=== PATIENT | female | born 1940 | race Caucasian/White ===

== ENCOUNTER 2018-04-03 05:17 | Inpatient (IN) | payer MEDICARE, BC ==
[~2018-04-03] VITALS: Ht 162.6 cm; Wt 56.7 kg
[~2018-04-03 05:17] MED LIST: AMOXICILLIN500 M1 PO; NORCO 5-325 TA1 EACH PO; PREDNISONE 20 M20 M1 PO; TESSALON PERLE100 M1 PO
[2018-04-03 05:18] VITALS: BP 157/77
[2018-04-03 06:21] LABS: HEMATOCRIT 43.2 % (37.0-47.0); HEMOGLOBIN 14.6 gm/dL (12.0-15.0); MCH 31.6 pg (26.0-34.0); MCHC 33.8 g/dL (28.0-37.0); MCV 93.6 fL (80.0-100.0); NUCLEATED RBCS 0 /100WBC; PLATELET COUNT* 150 thou/uL (150-400); RBC 4.61 mil/uL (4.20-5.00); RDW-CV 13.9 % (10.5-14.5)
[2018-04-03 06:38] LABS: CALCIUM 9.1 mg/dL (8.5-10.1); CREATININE 0.8 mg/dL (0.6-1.3); POTASSIUM 4.2 mmol/L (3.5-5.1)
[2018-04-03 06:42] LABS: ALBUMIN 3.5 g/dL (3.4-5.0); TOTAL BILIRUBIN 0.8 mg/dL (<0.1-1.0); TOTAL PROTEIN 6.6 g/dL (6.4-8.2)
[2018-04-03 07:39] LABS: URINE BILIRUBIN NEGATIVE (Negative); URINE BLOOD NEGATIVE (Negative); URINE CLARITY CLEAR; URINE COLOR YELLOW; URINE GLUCOSE-RANDOM NEGATIVE (Negative); URINE KETONES NEGATIVE (Negative); URINE LEUKOCYTES-REFLEX NEGATIVE (Negative); URINE NITRITE-REFLEX NEGATIVE (Negative); URINE PROTEIN NEGATIVE (Negative); URINE SPECIFIC GRAVITY 1.025 (1.005-1.030); URINE UROBILINOGEN 0.2 E.U./dl (0.2-1.0)
[2018-04-03 07:49] LABS: ABSOLUTE LYMPHOCYTES 1.3 thou/uL (0.8-5.3); ABSOLUTE MONOCYTES 1.4 thou/uL (0.0-1.2); ABSOLUTE NEUTROPHILS 11.3 thou/uL (1.6-8.1); PLATELET ESTIMATE ADEQUATE
[2018-04-03 12:47] VITALS: BP 132/60
[2018-04-03 12:49] VITALS: BP 131/70
[2018-04-03 13:00] VITALS: BP 118/37
[2018-04-03 16:57] VITALS: BP 129/69
[2018-04-03 19:35] VITALS: BP 109/43
[2018-04-04 05:10] LABS: HEMATOCRIT 34.8 % (37.0-47.0); MCH 32.1 pg (26.0-34.0); MCHC 34.1 g/dL (28.0-37.0); MCV 94.2 fL (80.0-100.0); MPV 9.7 fl. (7.2-11.1); RBC 3.7 mil/uL (4.20-5.00); RDW-CV 13.4 % (10.5-14.5); WBC 6.3 thou/uL (4.0-11.0)
[2018-04-04 05:33] LABS: HEMOGLOBIN 11.9 gm/dL (12.0-15.0)
[2018-04-04 05:41] LABS: ALBUMIN 2.7 g/dL (3.4-5.0); CALCIUM 8.5 mg/dL (8.5-10.1); CREATININE 0.6 mg/dL (0.6-1.3); MAGNESIUM 1.7 mg/dL (1.8-2.4); POTASSIUM 3.6 mmol/L (3.5-5.1); TOTAL BILIRUBIN 1.2 mg/dL (<0.1-1.0); TOTAL PROTEIN 5.1 g/dL (6.4-8.2)
[2018-04-04 07:40] VITALS: BP 144/69
[2018-04-04 13:23] VITALS: BP 144/69
[2018-04-04] MEDS ORDERED: ZOLOFT50 MG PO (13:23)
== END 2018-04-04 13:38 | disposition home or self-care (01) | DRG 392 ==
LOC: M.ERS 05:17 → M.3W 08:04 → M.TBA-ER 08:04 → M.3W 12:37
PROVIDERS: Emergency Medicine; ADMIT Internal Medicine
DX: A08.4 Viral intestinal infection, unspecified (principal); E44.1 Mild protein-calorie malnutrition; F41.9 Anxiety disorder, unspecified; E86.0 Dehydration; R19.7 Diarrhea, unspecified; F32.9 Major depressive disorder, single episode, unspecified; Z79.899 Other long term (current) drug therapy; Z68.21 Body mass index [BMI] 21.0-21.9, adult